=== PATIENT | female | born 1950 | race Caucasian/White ===

== ENCOUNTER 2019-08-04 05:22 | Inpatient (IN) | payer MEDICARE, OTHER ==
[2019-07-28 15:00] LABS: BASOPHILS % (AUTO) 0.5 % (0-1); EOSINOPHILS # (AUTO) 0.1 X10'3 (0-0.9); EOSINOPHILS % (AUTO) 0.7 % (0-6); LYMPHOCYTES # (AUTO) 2.7 X10'3 (1.1-4.8); LYMPHOCYTES % (AUTO) 38.1 % (21-51); MEAN CORPUSCULAR HEMOGLOBIN 30.4 PG (27.0-31.0); MEAN CORPUSCULAR HGB CONC 34.7 g/dL (33.0-36.5); MEAN CORPUSCULAR VOLUME 87.6 FL (78-98); MEAN PLATELET VOLUME 8.2 FL (7.4-10.4); MONOCYTES # (AUTO) 0.5 X10'3 (0-0.9); NEUTROPHILS # (AUTO) 3.7 X10'3 (1.8-7.7); NEUTROPHILS % (AUTO) 53.7 % (42-75); PRE OP PLATELET COUNT 249 X10'3 (140-440); RED BLOOD COUNT 5.26 X10'6 (4.20-5.60); RED CELL DISTRIBUTION WIDTH 12.9 % (11.5-14.5)
[2019-07-28 15:25] LABS: ALBUMIN 4.3 G/DL (3.4-5.0); ALBUMIN/GLOBULIN RATIO 1.3 (1.1-1.5); ALKALINE PHOSPHATASE 130 IU/L (46-116); BLOOD UREA NITROGEN 14 MG/DL (7-18); BUN/CREATININE RATIO 16.5 (6.6-38.0); CALCIUM 8.7 MG/DL (8.5-10.1); CHLORIDE 105 MMOL/L (99-107); CREATININE 0.85 MG/DL (0.40-0.90); PRE OP ALT 51 U/L (30-65); PRE OP ANION GAP 11 (8-16); PRE OP AST 20 U/L (10-37); PRE OP BILIRUB, TOTAL 0.5 MG/DL (0.0-1.0); PRE OP GLUCOSE 94 MG/DL (70-104); PRE OP POTASSIUM 3.6 MMOL/L (3.4-5.1); PRE OP SODIUM 143 MMOL/L (135-145); TOTAL CARBON DIOXIDE 27.4 MMOL/L (24-32); TOTAL PROTEIN 7.6 G/DL (6.4-8.2); eGFR 67 ML/MIN
[2019-08-04] VITALS (16 sets, daily range): BP systolic 115–158; BP diastolic 58–79
[~2019-08-04] VITALS: Ht 170.2 cm; Wt 108.9 kg
[~2019-08-04 05:22] MED LIST: BRIM2.5D; CALC500T11 PO; IBUP-24 PO; LEVO50TA8 PO; ringers solution, lacted 1,000 ML IV SCH; tranexamic acid inj. 1,000 MG in normal saline 100 ML IV ONE
[2019-08-04] MEDS ORDERED: vancomycin inj 1,500 MG in normal saline 300ml IV soln IV ONE (05:30)
[2019-08-04] MEDS ORDERED: famotidine 10mg tablet PO ONE (05:30)
[2019-08-04] MEDS ORDERED: gabapentin 300mg capsule PO ONE (05:30)
[2019-08-04] MEDS ORDERED: oxyCODONE SR 10mg (sust. release) tab -2 tabs (20mg) PO ONE (05:30)
[2019-08-04] MEDS ORDERED: Cefazolin 2GM/100ML NS IVPB 100 ML IV ONE ×2 (05:30→06:00)
[2019-08-04] MEDS ORDERED: acetaminophen 325mg tablet PO ONE (05:30)
[2019-08-04] MEDS ORDERED: metoclopramide 5 mg/ml inj IV ONE (05:30)
[2019-08-04] MEDS ORDERED: celeCOXIB 100mg capsule PO ONE (05:30)
[2019-08-04] MEDS ORDERED: tranexamic acid inj. 1,000 MG in normal saline 100 ML IV ONE (05:30)
[2019-08-04] MEDS ORDERED: LIDOcaine 1% (10mg/ml) 2ml vial ONE (05:41)
[2019-08-04] MEDS ORDERED: acetaminophen 325mg tablet PO PRN (06:15)
[2019-08-04] MEDS ORDERED: HYDROmorphone 1 mg/ml syringe IV PRN (06:15)
[2019-08-04] MEDS ORDERED: magnesium hydroxide 30ml (MOM) UD suspension PO PRN (06:15)
[2019-08-04] MEDS ORDERED: bisacodyl 10mg suppository rectal RC PRN (06:15)
[2019-08-04] MEDS ORDERED: ondansetron/PF 4mg/2ml inj IV PRN ×2 (06:15→08:00)
[2019-08-04] MEDS ORDERED: HYDROmorphone inj. 0.5 MG/0.5 ML DISP.SYRIN IV PRN (06:15)
[2019-08-04] MEDS ORDERED: diphenhydrAMINE 25mg capsule PO PRN ×2 (06:15)
[2019-08-04] MEDS ORDERED: ketorolac trometh. 30mg/ml inj. ONE (06:53)
[2019-08-04] MEDS ORDERED: epiNEPHrine 1 mg/ml inj ONE (06:54)
[2019-08-04] MEDS ORDERED: ROPIVAcaine 0.5% (5mg/ml) 30ml vial ONE ×2 (06:54→08:19)
[2019-08-04] MEDS ORDERED: vancomycin 1,000mg inj ONE (06:54)
[2019-08-04] MEDS ORDERED: cloNIDine hcl/PF 100mcg/ml inj ONE (06:54)
[2019-08-04] MEDS ORDERED: fentaNYL/PF 50MCG/1 ML 2ML syringe ONE (07:11)
[2019-08-04] MEDS ORDERED: MIDAZolam 5mg/5ml vial ONE (07:11)
[2019-08-04] MEDS ORDERED: ringers solution, lacted 1,000 ML IV SCH (07:59)
[2019-08-04] MEDS ORDERED: ROPIVAcaine 0.2% (10 MG/5 ML) BOLUS INJECTION ADDCANAL PRN (08:00)
[2019-08-04] MEDS ORDERED: proCHLORperazine 10 MG/2 ml inj IV PRN (08:00)
[2019-08-04] MEDS ORDERED: morphine 4 MG/ML inj SYRINge IV PRN ×2 (08:00)
[2019-08-04] MEDS ORDERED: meperidine/PF 25mg/ml syringe IV PRN ×3 (08:00)
[2019-08-04] MEDS ORDERED: propofol inj 20 ML IV ONE (08:19)
[2019-08-04] MEDS ORDERED: LIDOcaine 1%/PF 5ML 10 MG/ML VIAL ONE (08:19)
[2019-08-04] MEDS ORDERED: diphenhydrAMINE 50 mg/ml inj ONE (08:34)
--- NOTE | 2019-08-04 09:20 | NUR ---
Received from OR via BED , accompanied by Anesthesiologist DR QUINTERO and report given by Anesthesiolgist. PATIENT WAKING UP, DENIES PAIN, V/S WNL, NEUROVASCULAR CHECKS INTACT, 18G PIV LUE , DRESSING TO LEFT KNEE CDI W/ COLD POWDER PACK AND W/ SCD ON. . SENSATION T-9. KRISTAL DRESSING LEFT KNEE WRAP WITH ONQUE BALL AT 4ML/HR. DRESSING CDI
--- NOTE | 2019-08-04 09:20 | NUR ---
Received from OR via BED , accompanied by Anesthesiologist DR QUINTERO and report given by Anesthesiolgist. PATIENT WAKING UP, DENIES PAIN, V/S WNL, NEUROVASCULAR CHECKS INTACT, 18G PIV LUE , DRESSING TO RIGHT KNEE CDI W/ COLD POWDER PACK AND W/ SCD ON. . SENSATION T-9. KRISTAL DRESSING LEFT KNEE WRAP WITH ONQUE BALL AT 4ML/HR. DRESSING CDI Addendum: 08/04/19 at 1011 by Osvaldo Hernandez RN CANCEL THIS NOTE. WRONG SIDE DOCUMENTED
[2019-08-04] MEDS ORDERED: ROPIVAcaine 0.2%/PF PUMP/bolus 550 ML ADDCANAL SCH (10:00)
--- NOTE | 2019-08-04 10:00 | NUR ---
PATIENT A&OX4, DENIES PAIN, V/S WNL, NEUROVASCULAR CHECKS INTACT, 18G PIV LUE , KRISTAL DRESSING TO LEFT KNEE CDI W/ COLD POWDER PACK AND W/ SCD ON. ON QUE AT 4ML/HR FULL SENSATIONS NOW AND PATIENT MOVING FEET.. PATIENT TAKEN TO 4014A WITH ALL BELONGINGS AND HOOKED UP TO MONITORS IN ROOM AND REPORT GIVEN TO TEACHER [employer] WHO HAS TAKEN OVER PATIENT CARE.
[2019-08-04] MEDS: oxyCODONE/APAP 10/325mg tablet PO PRN ×3 (10:38→23:48)
[2019-08-04] MEDS ORDERED: tranexamic acid inj. 1,100 MG in normal saline 100ml IV soln 100 ML IV ONE (14:00)
[2019-08-04] MEDS: gabapentin 300mg capsule PO SCH ×2 (14:00→23:47)
[2019-08-04] MEDS: potassium cl 20mEq in 1/2 NS 1,000 ML IV SCH ×2 (15:14→19:00)
[2019-08-04] MEDS: cefazolin/dext.iso 2gm/100ml 100 ML IV SCH ×2 (17:57→23:46)
[2019-08-04] MEDS: ascorbic acid 500mg tablet PO SCH (19:01)
[2019-08-04] MEDS ORDERED: sennosides 8.6mg tablet PO SCH (21:00)
[2019-08-05 01:53] VITALS: BP 109/51
[2019-08-05] MEDS: potassium cl 20mEq in 1/2 NS 1,000 ML IV SCH ×2 (02:37→11:00)
[2019-08-05] MEDS: oxyCODONE/APAP 10/325mg tablet PO PRN ×3 (04:58→13:10)
[2019-08-05 05:47] VITALS: BP 135/71
[2019-08-05 06:19] LABS: BASOPHILS % (AUTO) 0.4 % (0-1); EOSINOPHILS % (AUTO) 0.6 % (0-6); HEMOGLOBIN 12.9 g/dl (12.0-16.0); LYMPHOCYTES # (AUTO) 1.4 X10'3 (1.1-4.8); LYMPHOCYTES % (AUTO) 18.5 % (21-51); MEAN CORPUSCULAR HEMOGLOBIN 30.6 PG (27.0-31.0); MEAN CORPUSCULAR HGB CONC 34.7 g/dL (33.0-36.5); MEAN CORPUSCULAR VOLUME 88.1 FL (78-98); MEAN PLATELET VOLUME 8.1 FL (7.4-10.4); MONOCYTES # (AUTO) 0.7 X10'3 (0-0.9); MONOCYTES % (AUTO) 9.8 % (2-12); NEUTROPHILS # (AUTO) 5.4 X10'3 (1.8-7.7); NEUTROPHILS % (AUTO) 70.7 % (42-75); PLATELET COUNT 189 X10'3 (140-440); WHITE BLOOD COUNT 7.7 X10'3 (4.5-11.0)
--- NOTE | 2019-08-05 06:29 | NUR ---
reported to days. noted pt walking well - anticipate discharge today
[2019-08-05 06:36] LABS: ANION GAP 3 (8-16); CHLORIDE 107 MMOL/L (99-107); SODIUM 141 MMOL/L (135-145); TOTAL CARBON DIOXIDE 30.8 MMOL/L (24-32)
[2019-08-05] MEDS ORDERED: levoTHYROXINE 25mcg tablet PO SCH (07:30)
[2019-08-05] MEDS ORDERED: multivitamins, therapeutics tablet PO SCH (08:00)
[2019-08-05] MEDS ORDERED: aspirin 325mg tablet PO SCH (08:30)
[2019-08-05] MEDS: ascorbic acid 500mg tablet PO SCH (08:47)
[2019-08-05] MEDS: gabapentin 300mg capsule PO SCH ×2 (08:47→13:08)
[2019-08-05 10:00] VITALS: BP 144/77
--- NOTE | 2019-08-05 15:14 | NUR ---
Joint replacement consult: Pt seen by DELANO for written/verbal high protein ed w/ RD contact information provided. Addendum: 08/05/19 at [address] Amended: Links added.
[2019-08-05] MEDS ORDERED: celeCOXIB 100mg capsule PO SCH (20:00)
--- NOTE | 2019-08-07 09:23 | NUR ---
Case Management DC follow up: spoke w/pt via telephone: pt states she is going great. Uses her walker/WBAT to get up and around, pain managed w/[place] 10/525 mg tab, which she does not have to take very often. denies SOB, cp, N/V, dizziness, abnormal swelling, redness, numbness, tingling, pain to L leg. verbalized understanding of medications and why prescribed. No ase noted. acknowledges follow up appt w/Dr Sadler 08/18/2019 and has PT Areli, 08/11/2019. all needs met, questions answered at hospital, no further questions at this time
== END 2019-08-05 14:50 | disposition home or self-care (01) | DRG 470 ==
LOC: PAS 05:22 → ORTHO 4S 06:11 → OBSVTOIN 06:15 → EDSTATUS 07:30 → ORTHO 4S 16:30
PROVIDERS: ADMIT Orthopaedic Surgery; ATTEND Orthopaedic Surgery
PROC: 3E0T3BZ Introduction of Anesthetic Agent into Peripheral Nerves and Plexi, Percutaneous Approach (ICD-10-PCS; 2019-08-04)
PROC: 0SRD0J9 Replacement of Left Knee Joint with Synthetic Substitute, Cemented, Open Approach (ICD-10-PCS; principal; 2019-08-04 07:10)
DX: M17.12 Unilateral primary osteoarthritis, left knee (principal); E03.9 Hypothyroidism, unspecified; Z79.899 Other long term (current) drug therapy; Z88.0 Allergy status to penicillin
CPT/HCPCS: 36415; 71046; 73560; 80051; 80053; 82948; 84443; 85025; 86885; 86900; 86901; 87081; 97110; 97116; 97162; 97530; A4215; A6454; A7000; C1713; C1776; G0378; J0171; J0690; J0735; J1200; J1885; J2001; J2250; J2704; J2765; J2795; J3010; J3370; J3480; J7120